=== PATIENT | male | born 1980 | race Caucasian/White ===

== ENCOUNTER 2017-01-31 04:33 | Emergency (ER) | payer MEDICARE, OTHER ==
[~2017-01-31] VITALS: Ht 162.6 cm; Wt 108.9 kg
[~2017-01-31 04:33] MED LIST: CIPRO PO; DEPAKOTE; DULCOLAX SUPP PR; GEODAN PO; LORTAB 7.5-5001 TAB PO; PHENERGAN PO; RISPERIDONE; SEROQUEL; SEROQUEL PO; VICODIN 5/500 T1 TAB PO
== END 2017-01-31 07:57 | disposition home or self-care (01) ==
LOC: CED 04:33
DX: L25.9 Unspecified contact dermatitis, unspecified cause (principal); F31.9 Bipolar disorder, unspecified; F20.9 Schizophrenia, unspecified; F17.200 Nicotine dependence, unspecified, uncomplicated
CPT/HCPCS: 99282